=== PATIENT | female | born 1975 | race Caucasian/White ===

== ENCOUNTER 2018-07-18 18:36 | Emergency (ER) | payer OTHER ==
[~2018-07-18] VITALS: Ht 170.2 cm; Wt 74.8 kg
[2018-07-18 18:46] VITALS: BP_SYST 128
[2018-07-18 19:30] VITALS: BP_SYST 120
== END 2018-07-18 19:30 | disposition home or self-care (01) ==
LOC: SED 18:36
DX: L20.9 Atopic dermatitis, unspecified (principal); B96.89 Other specified bacterial agents as the cause of diseases classified elsewhere; E78.5 Hyperlipidemia, unspecified
CPT/HCPCS: 99283

== ENCOUNTER 2018-07-23 15:57 | Emergency (ER) | payer OTHER ==
[~2018-07-23] VITALS: Ht 170.2 cm; Wt 74.8 kg
[2018-07-23 16:00] VITALS: BP_SYST 139
[2018-07-23] MEDS ORDERED: HYDR-3698 PO (16:16)
[2018-07-23] MEDS ORDERED: DEXAMETHASONE SOD PHOSPHATE 10 MG/ML VIAL IM ONE (19:15)
[2018-07-23] MEDS ORDERED: DIPHENHYDRAMINE INJ 50 MG/ML VIAL IM ONE (19:15)
[2018-07-23 20:17] VITALS: BP_SYST 132
== END 2018-07-23 20:17 | disposition home or self-care (01) ==
LOC: SED 15:57
DX: L50.9 Urticaria, unspecified (principal); R21 Rash and other nonspecific skin eruption; R03.0 Elevated blood-pressure reading, without diagnosis of hypertension; E78.5 Hyperlipidemia, unspecified
CPT/HCPCS: 96372; 99284; J1100; J1200; 99283

== ENCOUNTER 2021-08-08 18:37 | Emergency (ER) | payer BC ==
[~2021-08-08] VITALS: Ht 160 cm; Wt 72.6 kg
[~2021-08-08 18:37] MED LIST: HYDR-3698 PO
[2021-08-08 18:47] VITALS: BP_SYST 149
[2021-08-08] MEDS ORDERED: FAMOTIDINE 20 MG TABLET PO ONE (19:00)
[2021-08-08] MEDS ORDERED: EPINEPHrine 1 MG/ML AMP IM ONE (19:00)
[2021-08-08] MEDS ORDERED: EPINEPHrine 1 MG/ML AMP ONE (19:02)
[2021-08-08 19:04] LABS: BASOPHILS # (AUTO) 0.2 K/uL (0.0-0.2); BASOPHILS % (AUTO) 2.2 % (0.0-2.0); EOSINOPHILS # (AUTO) 0.7 K/uL (0.0-0.4); EOSINOPHILS % (AUTO) 9.3 % (0.0-4.0); HEMATOCRIT 36.8 % (36-48); HEMOGLOBIN 12.6 g/dL (12.0-16.0); LYMPHOCYTES # (AUTO) 1.3 K/uL (1.0-5.5); MEAN CORPUSCULAR HEMOGLOBIN 31 pg (27-31); MEAN CORPUSCULAR HGB CONC 34 % (32-36); MEAN CORPUSCULAR VOLUME 91 fL (79.0-98.0); MONOCYTES # (AUTO) 0.5 K/uL (0.0-1.0); MONOCYTES % (AUTO) 6.6 % (1.7-9.3); NEUTROPHILS # (AUTO) 5.1 K/uL (1.8-7.7); NEUTROPHILS % (AUTO) 64.9 % (40.0-70.0); PLATELET COUNT (AUTO) 265 K/uL (130-430); RED BLOOD CELL COUNT(AUTO) 4.04 MIL/uL (4.2-6.2); RED CELL DISTRIBUTION WIDTH 13.1 % (9.0-15.0); WHITE BLOOD COUNT (AUTO) 7.9 K/uL (4.8-10.8)
[2021-08-08 19:20] LABS: ANION GAP 11 (5-15); CALCIUM 8.9 mg/dL (8.4-11.0); CHLORIDE 102 mmol/L (98-107); CREATININE 0.79 mg/dL (0.55-1.30); GLUCOSE 135 mg/dL (70-99); POTASSIUM 3.8 mmol/L (3.5-5.1); SODIUM SERUM 140 mmol/L (136-145); UREA NITROGEN, BLOOD 12 mg/dL (8-21)
[2021-08-08 19:25] LABS: ALANINE AMINOTRANSFERASE 28 U/L (12-78); ALBUMIN 3.9 g/dL (3.4-4.8); ASPARTATE AMINOTRANSFERASE 13 U/L (10-37)
[2021-08-08 19:28] LABS: GFR AFRICAN AMERICAN 100 mL/min (>90)
[2021-08-08 19:42] LABS: TOTAL BILIRUBIN 0.1 mg/dL (0.0-1.0)
[2021-08-08 19:51] LABS: C-REACTIVE PROTEIN QUANT < 0.2 mg/dL (0-0.5)
[2021-08-08 19:52] LABS: INR 0.9 (0.8-1.2); PROTHROMBIN TIME 9.9 SECS (9.5-12.5)
[2021-08-08] MEDS ORDERED: EPIN0.3P3 IM (20:14)
[2021-08-08 20:22] VITALS: BP_SYST 131
[2021-08-08 21:07] LABS: ERYTHROCYTE SEDIMENTATION RATE 9 MM/HR (0-20)
== END 2021-08-08 20:23 | disposition home or self-care (01) ==
LOC: SED 18:37
DX: L23.9 Allergic contact dermatitis, unspecified cause (principal); Z79.899 Other long term (current) drug therapy
CPT/HCPCS: 36415; 80053; 81025; 85025; 85610; 85651; 85730; 86140; 96372; 99283; J0171

== ENCOUNTER 2023-10-19 13:27 | Emergency (ER) | payer BC ==
[~2023-10-19] VITALS: Ht 167.6 cm; Wt 73.0 kg
[~2023-10-19 13:27] MED LIST changes: +EPIN0.3P3 IM
[2023-10-19 13:33] VITALS: BP_SYST 121; PULSE 62; RESP 18; TEMP 98.3; O2SAT 98
[2023-10-19] MEDS ORDERED: MORPHINE 2 MG/ML INJ. SYRINGE IVP ONE (15:00)
[2023-10-19 15:06] LABS: BASOPHILS % (AUTO) 0.9 % (0.0-2.0); EOSINOPHILS # (AUTO) 0.1 K/uL (0.0-0.4); EOSINOPHILS % (AUTO) 2.8 % (0.0-4.0); HEMATOCRIT 38.3 % (36-48); HEMOGLOBIN 12.5 g/dL (12.0-16.0); LYMPHOCYTES % (AUTO) 21.2 % (20.5-51.5); MEAN CORPUSCULAR HEMOGLOBIN 29 pg (27-31); MEAN CORPUSCULAR HGB CONC 33 % (32-36); MEAN CORPUSCULAR VOLUME 89 fL (79.0-98.0); MONOCYTES # (AUTO) 0.4 K/uL (0.0-1.0); NEUTROPHILS # (AUTO) 3.1 K/uL (1.8-7.7); NEUTROPHILS % (AUTO) 66.1 % (40.0-70.0); PLATELET COUNT (AUTO) 332 K/uL (130-430); RED BLOOD CELL COUNT(AUTO) 4.31 MIL/uL (4.2-6.2); RED CELL DISTRIBUTION WIDTH 14.6 % (9.0-15.0); WHITE BLOOD COUNT (AUTO) 4.6 K/uL (4.8-10.8)
[2023-10-19 15:16] LABS: CALCIUM 9.4 mg/dL (8.4-11.0); CREATININE 0.59 mg/dL (0.55-1.30); POTASSIUM 4.2 mmol/L (3.5-5.1)
[2023-10-19] MEDS ORDERED: ANURH RC ×2 (17:42→17:58)
[2023-10-19] MEDS ORDERED: LACT10SO6 PO ×2 (17:42→17:58)
[2023-10-19 18:00] VITALS: BP_SYST 121; PULSE 62; RESP 18; TEMP 98.3; O2SAT 98
== END 2023-10-19 17:45 | disposition home or self-care (01) ==
LOC: SED 13:27
DX: K59.00 Constipation, unspecified (principal); K64.9 Unspecified hemorrhoids; Z79.899 Other long term (current) drug therapy
CPT/HCPCS: 99285; 74177; 96374; 80048; 85025; 36415; 76376; J2270

== ENCOUNTER 2023-10-30 07:08 | Inpatient (IN) | payer BC ==
[~2023-10-30] VITALS: Ht 170.2 cm; Wt 72.6 kg
[~2023-10-30 07:08] MED LIST changes: +ANURH RC; +LACT10SO6 PO
[2023-10-30 07:48] LABS: BASOPHILS % (AUTO) 0.3 % (0.0-2.0); EOSINOPHILS % (AUTO) 0.1 % (0.0-4.0); HEMATOCRIT 42.2 % (36-48); HEMOGLOBIN 13.5 g/dL (12.0-16.0); LYMPHOCYTES # (AUTO) 0.4 K/uL (1.0-5.5); LYMPHOCYTES % (AUTO) 3.7 % (20.5-51.5); MEAN CORPUSCULAR HEMOGLOBIN 29 pg (27-31); MEAN CORPUSCULAR HGB CONC 32 % (32-36); MEAN CORPUSCULAR VOLUME 89 fL (79.0-98.0); MONOCYTES # (AUTO) 0.7 K/uL (0.0-1.0); MONOCYTES % (AUTO) 6.3 % (1.7-9.3); NEUTROPHILS # (AUTO) 10.1 K/uL (1.8-7.7); NEUTROPHILS % (AUTO) 89.6 % (40.0-70.0); PLATELET COUNT (AUTO) 384 K/uL (130-430); RED BLOOD CELL COUNT(AUTO) 4.74 MIL/uL (4.2-6.2); RED CELL DISTRIBUTION WIDTH 14.2 % (9.0-15.0); WHITE BLOOD COUNT (AUTO) 11.2 K/uL (4.8-10.8)
[2023-10-30 08:07] LABS: CREATININE 0.75 mg/dL (0.55-1.30); POTASSIUM 3.1 mmol/L (3.5-5.1)
[2023-10-30 08:10] VITALS: BP_SYST 140; PULSE 71; RESP 22; TEMP 96.5; O2SAT 97
[2023-10-30 08:12] LABS: ALBUMIN 4.1 g/dL (3.4-4.8); BILIRUBIN,DIRECT 0.1 mg/dL (0.0-0.3); TOTAL BILIRUBIN 0.4 mg/dL (0.0-1.0); TOTAL PROTEIN, SERUM 7.5 g/dL (6.4-8.3)
[2023-10-30 09:40] LABS: BILIRUBIN,URINE 2+ (NEGATIVE); BLOOD, URINE NEGATIVE (NEGATIVE); CLARITY/URINE SL CLOUDY (CLEAR); COLOR,URINE YELLOW (YELLOW); GLUCOSE,URINE NEGATIVE (NEGATIVE); KETONES,URINE TRACE (NEGATIVE); LEUKOCYTE ESTERASE ,URINE NEGATIVE (NEGATIVE); NITRITE, URINE POSITIVE (NEGATIVE); PH,URINE 5.5 (5.0-8.0); PROTEIN URINE 1+ (NEGATIVE)
[2023-10-30] MEDS ORDERED: MORPHINE 2 MG/ML INJ. SYRINGE IVP PRN ×2 (10:00→10:45)
[2023-10-30 10:20] LABS: BACTERIA,URINE RARE /HPF (None Seen); CALCIUM OXALATE CRYSTALS,UR 0-10 /HPF (None Seen); RBC,URINE 0-3 /HPF (0-3); WBC,URINE 0-3 /HPF (0-3)
[2023-10-30] MEDS: D5NS 1,000 ML IV SCH ×2 (10:26→22:47)
[2023-10-30] MEDS ORDERED: MUPIROCIN 2% TOPICAL OINTMENT 22 GM NS PRN (10:45)
[2023-10-30] MEDS ORDERED: LORazepam 2 MG/ML VIAL IVP PRN (10:45)
[2023-10-30] MEDS ORDERED: ZOLPIDEM TARTRATE 5 MG TABLET PO PRN (10:45)
[2023-10-30] MEDS ORDERED: MAGNESIUM SULFATE 50 ML IV PRN (10:45)
[2023-10-30] MEDS ORDERED: POTASSIUM CHLORIDE 40 MEQ in 0.45% NS 250 ML IV ONE (10:45)
[2023-10-30] MEDS ORDERED: ACETAMINOPHEN 500 MG TABLET PO PRN ×2 (10:45→11:15)
[2023-10-30] MEDS ORDERED: DOCUSATE SODIUM 100 MG CAPSULE PO PRN (10:45)
[2023-10-30] MEDS ORDERED: ONDANSETRON HCL 4 MG/2 ML VIAL IVP PRN (10:45)
[2023-10-30] MEDS: POTASSIUM CHLORIDE 20 mEq in 100 mL (PREMIX) 100 ML x 2 doses IV SCH ×2 (11:39→14:23)
[2023-10-30] MEDS ORDERED: PIPERACILLIN/TAZO 3.375 GM in NS 50 ML IV ONE (12:00)
[2023-10-30] MEDS: MORPHINE 2 MG/ML INJ. SYRINGE IVP PRN ×2 (12:57→21:04)
[2023-10-30 18:45] VITALS: BP_SYST 162; PULSE 64; RESP 19; TEMP 98.6; O2SAT 97
[2023-10-30 20:00] VITALS: BP_SYST 154; PULSE 69; RESP 20; TEMP 99; O2SAT 99
[2023-10-30] MEDS: SIMETHICONE 80 MG TAB.CHEW PO PRN (20:57)
[2023-10-30] MEDS: PIPERACILLIN/TAZO 3.375 GM in NS 50 ML IV SCH (21:08)
[2023-10-31] VITALS (7 sets, daily range): BP systolic 142–154; PULSE 61–99; RESP 18–21; TEMP 97.2–99; O2SAT 98–99
[2023-10-31] MEDS: PIPERACILLIN/TAZO 3.375 GM in NS 50 ML IV SCH ×4 (01:28→21:53)
[2023-10-31] MEDS: SIMETHICONE 80 MG TAB.CHEW PO PRN (03:16)
[2023-10-31 05:27] LABS: BASOPHILS % (AUTO) 0.7 % (0.0-2.0); EOSINOPHILS # (AUTO) 0.1 K/uL (0.0-0.4); EOSINOPHILS % (AUTO) 3.4 % (0.0-4.0); HEMATOCRIT 37.4 % (36-48); HEMOGLOBIN 12.2 g/dL (12.0-16.0); LYMPHOCYTES # (AUTO) 0.8 K/uL (1.0-5.5); LYMPHOCYTES % (AUTO) 17.7 % (20.5-51.5); MEAN CORPUSCULAR HEMOGLOBIN 29 pg (27-31); MEAN CORPUSCULAR HGB CONC 33 % (32-36); MEAN CORPUSCULAR VOLUME 89 fL (79.0-98.0); MONOCYTES # (AUTO) 0.5 K/uL (0.0-1.0); MONOCYTES % (AUTO) 11.1 % (1.7-9.3); NEUTROPHILS # (AUTO) 2.9 K/uL (1.8-7.7); NEUTROPHILS % (AUTO) 67.1 % (40.0-70.0); PLATELET COUNT (AUTO) 304 K/uL (130-430); RED BLOOD CELL COUNT(AUTO) 4.21 MIL/uL (4.2-6.2); RED CELL DISTRIBUTION WIDTH 14.1 % (9.0-15.0); WHITE BLOOD COUNT (AUTO) 4.3 K/uL (4.8-10.8)
[2023-10-31 05:49] LABS: CALCIUM 8.8 mg/dL (8.4-11.0); CREATININE 0.59 mg/dL (0.55-1.30); POTASSIUM 3.1 mmol/L (3.5-5.1)
[2023-10-31] MEDS ORDERED: GADOBENATE DIMEGLUMINE 529 MG/ML, 5 ML VIAL IV ONE (08:52)
[2023-10-31] MEDS: MORPHINE 2 MG/ML INJ. SYRINGE IVP PRN ×2 (10:38→16:47)
[2023-10-31] MEDS: D5NS 1,000 ML IV SCH (11:00)
[2023-10-31] MEDS ORDERED: MEPERIDINE 100 MG INJ. 100 MG/ML VIAL ONE (11:09)
[2023-10-31] MEDS ORDERED: MIDAZOLAM HCL 5 MG/5 ML VIAL ONE (11:09)
[2023-10-31] MEDS ORDERED: KETOROLAC TROMETHAMINE 30 MG VIAL IVP PRN (12:30)
[2023-10-31] MEDS: HYDROCORTISONE ACETATE 1 SUPP (ANUSOL HC) RC SCH (21:00)
[2023-10-31] MEDS: MORPHINE 4 MG INJ. 4 MG/ML VIAL IVP PRN (21:54)
[2023-11-01] VITALS: BP_SYST 148; PULSE 55; RESP 18; TEMP 97.4; O2SAT 95
[2023-11-01] MEDS: D5NS 1,000 ML IV SCH ×2 (00:46→15:12)
[2023-11-01] MEDS: PIPERACILLIN/TAZO 3.375 GM in NS 50 ML IV SCH (02:51)
[2023-11-01] MEDS: MORPHINE 4 MG INJ. 4 MG/ML VIAL IVP PRN ×4 (03:55→21:53)
[2023-11-01 08:00] VITALS: BP_SYST 137; PULSE 54; RESP 18; TEMP 97.9; O2SAT 97
[2023-11-01 08:03] LABS: BASOPHILS % (AUTO) 0.7 % (0.0-2.0); EOSINOPHILS # (AUTO) 0.1 K/uL (0.0-0.4); EOSINOPHILS % (AUTO) 2.9 % (0.0-4.0); HEMATOCRIT 37.8 % (36-48); HEMOGLOBIN 12.3 g/dL (12.0-16.0); LYMPHOCYTES # (AUTO) 0.7 K/uL (1.0-5.5); LYMPHOCYTES % (AUTO) 16.1 % (20.5-51.5); MEAN CORPUSCULAR HEMOGLOBIN 29 pg (27-31); MEAN CORPUSCULAR HGB CONC 32 % (32-36); MEAN CORPUSCULAR VOLUME 89 fL (79.0-98.0); MONOCYTES # (AUTO) 0.5 K/uL (0.0-1.0); MONOCYTES % (AUTO) 10.6 % (1.7-9.3); NEUTROPHILS # (AUTO) 3.1 K/uL (1.8-7.7); NEUTROPHILS % (AUTO) 69.7 % (40.0-70.0); PLATELET COUNT (AUTO) 291 K/uL (130-430); RED BLOOD CELL COUNT(AUTO) 4.24 MIL/uL (4.2-6.2); RED CELL DISTRIBUTION WIDTH 14.2 % (9.0-15.0); WHITE BLOOD COUNT (AUTO) 4.4 K/uL (4.8-10.8)
[2023-11-01 08:18] LABS: CALCIUM 8.1 mg/dL (8.4-11.0); CREATININE 0.58 mg/dL (0.55-1.30)
[2023-11-01 08:26] LABS: POTASSIUM 2.6 mmol/L (3.5-5.1)
[2023-11-01] MEDS: POTASSIUM CHLORIDE 20 MEQ TABLET.ER PO PRN (09:32)
[2023-11-01] MEDS: SIMETHICONE 80 MG TAB.CHEW PO PRN (09:32)
[2023-11-01] MEDS: HYDROCORTISONE ACETATE 1 SUPP (ANUSOL HC) RC SCH ×2 (12:21→21:00)
[2023-11-01] MEDS: metroNIDAZOLE 250 mg/NS 50 ML IV SCH ×2 (15:13→21:56)
[2023-11-01 20:45] VITALS: BP_SYST 139; PULSE 62; RESP 18; TEMP 98.4; O2SAT 97
[2023-11-02] VITALS: BP_SYST 147; PULSE 60; RESP 18; TEMP 98.6; O2SAT 97
[2023-11-02] MEDS: D5NS 1,000 ML IV SCH ×2 (00:30→13:00)
[2023-11-02] MEDS: HYDROCORTISONE ACETATE 1 SUPP (ANUSOL HC) RC SCH ×2 (00:52→09:15)
[2023-11-02] MEDS: MORPHINE 4 MG INJ. 4 MG/ML VIAL IVP PRN (03:29)
[2023-11-02 06:05] LABS: BASOPHILS % (AUTO) 0.6 % (0.0-2.0); EOSINOPHILS # (AUTO) 0.1 K/uL (0.0-0.4); EOSINOPHILS % (AUTO) 2.7 % (0.0-4.0); HEMATOCRIT 37.6 % (36-48); HEMOGLOBIN 12.1 g/dL (12.0-16.0); LYMPHOCYTES # (AUTO) 0.8 K/uL (1.0-5.5); LYMPHOCYTES % (AUTO) 18.1 % (20.5-51.5); MEAN CORPUSCULAR HEMOGLOBIN 29 pg (27-31); MEAN CORPUSCULAR HGB CONC 32 % (32-36); MEAN CORPUSCULAR VOLUME 90 fL (79.0-98.0); MONOCYTES # (AUTO) 0.4 K/uL (0.0-1.0); MONOCYTES % (AUTO) 10.3 % (1.7-9.3); NEUTROPHILS # (AUTO) 2.9 K/uL (1.8-7.7); NEUTROPHILS % (AUTO) 68.3 % (40.0-70.0); PLATELET COUNT (AUTO) 278 K/uL (130-430); RED CELL DISTRIBUTION WIDTH 13.9 % (9.0-15.0); WHITE BLOOD COUNT (AUTO) 4.2 K/uL (4.8-10.8)
[2023-11-02] MEDS: metroNIDAZOLE 250 mg/NS 50 ML IV SCH ×2 (06:11→14:00)
[2023-11-02 06:25] LABS: CALCIUM 8.4 mg/dL (8.4-11.0); CREATININE 0.51 mg/dL (0.55-1.30); POTASSIUM 3.1 mmol/L (3.5-5.1)
[2023-11-02 08:00] VITALS: O2SAT 99
[2023-11-02 08:07] VITALS: BP_SYST 142; PULSE 55; RESP 18; TEMP 98.6; O2SAT 99
[2023-11-02] MEDS ORDERED: HYDR-3917 PO (08:55)
[2023-11-02] MEDS ORDERED: METR-154 PO (08:55)
[2023-11-02] MEDS ORDERED: SIME125T49 PO (08:56)
[2023-11-02] MEDS ORDERED: HYDROcodone/ACETAMIN 5-325 MG TAB (NORCO/ VICODIN) PO PRN (09:00)
[2023-11-02] MEDS: POTASSIUM CHLORIDE 20 MEQ TABLET.ER PO PRN (09:35)
[2023-11-02 12:00] VITALS: BP_SYST 143; PULSE 56; RESP 18; TEMP 97.3; O2SAT 98
[2023-11-02 13:40] VITALS: BP_SYST 145; PULSE 59; RESP 18; TEMP 97.5; O2SAT 98
[2023-11-02] MEDS ORDERED: ACYCLOVIR 400 MG TABLET PO SCH (14:00)
== END 2023-11-02 14:20 | disposition home or self-care (01) | DRG 392 ==
LOC: SED 07:08 → SMU 09:50
PROVIDERS: ADMIT General Practice; ATTEND General Practice
PROC: 0DBP8ZX Excision of Rectum, Via Natural or Artificial Opening Endoscopic, Diagnostic (ICD-10-PCS; principal; 2023-10-31 14:00)
DX: K57.90 Diverticulosis of intestine, part unspecified, without perforation or abscess without bleeding (principal); K56.7 Ileus, unspecified; E78.5 Hyperlipidemia, unspecified; K62.89 Other specified diseases of anus and rectum; M43.06 Spondylolysis, lumbar region; N73.9 Female pelvic inflammatory disease, unspecified; E27.9 Disorder of adrenal gland, unspecified; Z80.1 Family history of malignant neoplasm of trachea, bronchus and lung
CPT/HCPCS: 36415; 72197; 74018; 76376; 80048; 80076; 81000; 81001; 81015; 83037; 83735; 85025; 85651-TC; 86592; 87040; 88305; 96365; 96375; 99285; A9577; J1885; J2175; J2250; J2270; J2405; J2543; J3480; J3490; Q9967

== ENCOUNTER 2023-11-03 11:26 | Inpatient (IN) | payer BC ==
[~2023-11-03] VITALS: Ht 170.2 cm; Wt 72.1 kg
[~2023-11-03 11:26] MED LIST changes: -ANURH RC; -EPIN0.3P3 IM; -HYDR-3698 PO; +HYDR-3917 PO; -LACT10SO6 PO; +METR-154 PO; +SIME125T49 PO
[2023-11-03 11:35] VITALS: BP_SYST 150; PULSE 77; RESP 24; TEMP 97.8; O2SAT 99
[2023-11-03] MEDS ORDERED: MORPHINE 4 MG INJ. 4 MG/ML VIAL IVP ONE (13:00)
[2023-11-03] MEDS ORDERED: ONDANSETRON HCL 4 MG/2 ML VIAL IVP ONE (13:00)
[2023-11-03] MEDS ORDERED: KETOROLAC TROMETHAMINE 15 MG VIAL IVP ONE (13:15)
[2023-11-03 13:22] LABS: BILIRUBIN,URINE NEGATIVE (NEGATIVE); BLOOD, URINE NEGATIVE (NEGATIVE); CLARITY/URINE CLEAR (CLEAR); COLOR,URINE YELLOW (YELLOW); GLUCOSE,URINE NEGATIVE (NEGATIVE); KETONES,URINE 1+ (NEGATIVE); LEUKOCYTE ESTERASE ,URINE TRACE (NEGATIVE); NITRITE, URINE NEGATIVE (NEGATIVE); PH,URINE 6.5 (5.0-8.0); PROTEIN URINE NEGATIVE (NEGATIVE); UROBILINOGEN,URINE 0.2 (0.2-1.0)
[2023-11-03 13:33] LABS: BASOPHILS % (AUTO) 0.6 % (0.0-2.0); EOSINOPHILS # (AUTO) 0.1 K/uL (0.0-0.4); EOSINOPHILS % (AUTO) 1.3 % (0.0-4.0); HEMATOCRIT 41.3 % (36-48); HEMOGLOBIN 13.5 g/dL (12.0-16.0); LYMPHOCYTES # (AUTO) 0.7 K/uL (1.0-5.5); LYMPHOCYTES % (AUTO) 10.4 % (20.5-51.5); MEAN CORPUSCULAR HEMOGLOBIN 29 pg (27-31); MEAN CORPUSCULAR HGB CONC 33 % (32-36); MEAN CORPUSCULAR VOLUME 90 fL (79.0-98.0); MONOCYTES # (AUTO) 0.4 K/uL (0.0-1.0); MONOCYTES % (AUTO) 6.5 % (1.7-9.3); NEUTROPHILS # (AUTO) 5.3 K/uL (1.8-7.7); NEUTROPHILS % (AUTO) 81.2 % (40.0-70.0); PLATELET COUNT (AUTO) 336 K/uL (130-430); RED CELL DISTRIBUTION WIDTH 14.3 % (9.0-15.0); WHITE BLOOD COUNT (AUTO) 6.5 K/uL (4.8-10.8)
[2023-11-03 13:52] LABS: ALBUMIN 4.2 g/dL (3.4-4.8); BILIRUBIN,DIRECT 0.2 mg/dL (0.0-0.3); CALCIUM 9.8 mg/dL (8.4-11.0); CREATININE 0.69 mg/dL (0.55-1.30); TOTAL BILIRUBIN 0.6 mg/dL (0.0-1.0); TOTAL PROTEIN, SERUM 7.7 g/dL (6.4-8.3)
[2023-11-03] MEDS ORDERED: D5/0.45 NS 1,000 ML IV ONE (14:15)
[2023-11-03] MEDS ORDERED: HYDROCORTISONE ACETATE 1 SUPP (ANUSOL HC) RC ONE (16:45)
[2023-11-03 17:47] VITALS: BP_SYST 141; PULSE 65; RESP 16; TEMP 98.3; O2SAT 99
[2023-11-03 20:33] VITALS: BP_SYST 145; PULSE 78; RESP 20; TEMP 98.7
[2023-11-03] MEDS ORDERED: SIMETHICONE 80 MG TAB.CHEW PO SCH (21:15)
[2023-11-03] MEDS: KETOROLAC TROMETHAMINE 30 MG VIAL IVP PRN (21:34)
[2023-11-04] MEDS: SIMETHICONE 80 MG TAB.CHEW PO SCH ×2 (00:30→08:59)
[2023-11-04] MEDS: KETOROLAC TROMETHAMINE 30 MG VIAL IVP PRN ×5 (02:11→19:44)
[2023-11-04 03:59] LABS: HCG,QUAL RESULT NEGATIVE (NEGATIVE)
[2023-11-04 08:00] VITALS: O2SAT 98
[2023-11-04 08:34] VITALS: BP_SYST 138; PULSE 62; RESP 16; TEMP 99.1; O2SAT 98
[2023-11-04] MEDS ORDERED: LORazepam 2 MG/ML VIAL IVP PRN (09:15)
[2023-11-04] MEDS ORDERED: NALOXONE HCL 0.4 MG/ML AMP (NARCAN) IVP PRN ×2 (09:15)
[2023-11-04] MEDS ORDERED: HYDROcodone/ACETAMIN 5-325 MG TAB (NORCO/ VICODIN) PO PRN (09:15)
[2023-11-04 09:44] LABS: BASOPHILS % (AUTO) 0.6 % (0.0-2.0); EOSINOPHILS # (AUTO) 0.2 K/uL (0.0-0.4); EOSINOPHILS % (AUTO) 3.3 % (0.0-4.0); HEMATOCRIT 38.2 % (36-48); HEMOGLOBIN 12.8 g/dL (12.0-16.0); LYMPHOCYTES # (AUTO) 0.8 K/uL (1.0-5.5); LYMPHOCYTES % (AUTO) 16.6 % (20.5-51.5); MEAN CORPUSCULAR HEMOGLOBIN 30 pg (27-31); MEAN CORPUSCULAR HGB CONC 34 % (32-36); MEAN CORPUSCULAR VOLUME 90 fL (79.0-98.0); MONOCYTES # (AUTO) 0.5 K/uL (0.0-1.0); MONOCYTES % (AUTO) 10.2 % (1.7-9.3); NEUTROPHILS # (AUTO) 3.4 K/uL (1.8-7.7); NEUTROPHILS % (AUTO) 69.3 % (40.0-70.0); PLATELET COUNT (AUTO) 319 K/uL (130-430); RED BLOOD CELL COUNT(AUTO) 4.27 MIL/uL (4.2-6.2); WHITE BLOOD COUNT (AUTO) 4.8 K/uL (4.8-10.8)
[2023-11-04 09:55] LABS: CALCIUM 8.6 mg/dL (8.4-11.0); CREATININE 0.54 mg/dL (0.55-1.30); POTASSIUM 3.1 mmol/L (3.5-5.1)
[2023-11-04] MEDS: ONDANSETRON HCL 4 MG/2 ML VIAL IVP PRN (10:06)
[2023-11-04 11:29] VITALS: BP_SYST 140; PULSE 62; RESP 16; TEMP 98.2; O2SAT 96
[2023-11-04] MEDS: POTASSIUM CHLORIDE 20 MEQ TABLET.ER PO ONE ×2 (11:45→14:16)
[2023-11-04] MEDS ORDERED: PHENYLEPH/MINERAL OIL/PETROLAT 57 GM OINT.APPL TP PRN (13:30)
[2023-11-04] MEDS: metroNIDAZOLE 500 MG TABLET PO SCH ×2 (15:00→21:00)
[2023-11-04] MEDS ORDERED: POTASSIUM CHLORIDE 40 MEQ, LIDOCAINE JECT 2% PF 100 MG 75 MG in NS 250 ML IV ONE (16:00)
[2023-11-04] MEDS ORDERED: DIATR MEGLU/DIATRIZ SOD 30 ML SOLUTION PO ONE (16:10)
[2023-11-04 20:00] VITALS: BP_SYST 146; PULSE 87; RESP 18; TEMP 98.3; O2SAT 98
[2023-11-04] MEDS ORDERED: SIMETHICONE 125 MG PO SCH (21:00)
[2023-11-04 23:25] VITALS: O2SAT 98
[2023-11-05] MEDS: KETOROLAC TROMETHAMINE 30 MG VIAL IVP PRN ×3 (00:05→08:29)
[2023-11-05 00:06] VITALS: BP_SYST 145; PULSE 66; RESP 16; TEMP 96.5; O2SAT 97
[2023-11-05] MEDS: D5/0.45 NS 1,000 ML IV SCH ×2 (01:22→05:00)
[2023-11-05] MEDS ORDERED: SIMETHICONE 80 MG TAB.CHEW PO ONE (02:45)
[2023-11-05] MEDS: ACETAMINOPHEN 325 MG TABLET PO PRN (02:54)
[2023-11-05 07:08] LABS: CALCIUM 8.9 mg/dL (8.4-11.0); POTASSIUM 3.3 mmol/L (3.5-5.1)
[2023-11-05 07:09] LABS: CREATININE 0.61 mg/dL (0.55-1.30)
[2023-11-05 07:11] LABS: BASOPHILS % (AUTO) 0.5 % (0.0-2.0); EOSINOPHILS # (AUTO) 0.1 K/uL (0.0-0.4); EOSINOPHILS % (AUTO) 3.4 % (0.0-4.0); HEMATOCRIT 37.9 % (36-48); HEMOGLOBIN 12.8 g/dL (12.0-16.0); LYMPHOCYTES # (AUTO) 0.6 K/uL (1.0-5.5); LYMPHOCYTES % (AUTO) 14.6 % (20.5-51.5); MEAN CORPUSCULAR HEMOGLOBIN 30 pg (27-31); MEAN CORPUSCULAR HGB CONC 34 % (32-36); MEAN CORPUSCULAR VOLUME 89 fL (79.0-98.0); MONOCYTES # (AUTO) 0.5 K/uL (0.0-1.0); MONOCYTES % (AUTO) 11.8 % (1.7-9.3); NEUTROPHILS # (AUTO) 3.1 K/uL (1.8-7.7); NEUTROPHILS % (AUTO) 69.7 % (40.0-70.0); PLATELET COUNT (AUTO) 317 K/uL (130-430); RED BLOOD CELL COUNT(AUTO) 4.24 MIL/uL (4.2-6.2); WHITE BLOOD COUNT (AUTO) 4.4 K/uL (4.8-10.8)
[2023-11-05 08:00] VITALS: O2SAT 97
[2023-11-05] MEDS: metroNIDAZOLE 500 MG TABLET PO SCH ×2 (08:25→21:00)
[2023-11-05] MEDS: SIMETHICONE 80 MG TAB.CHEW PO SCH ×3 (08:26→21:00)
[2023-11-05] MEDS ORDERED: MINERAL OIL 30 ML UDC PO ONE (09:45)
[2023-11-05] MEDS ORDERED: GOLYTELY / COLYTE SOLUTION 4 LITERS PO ONE (09:45)
[2023-11-05 11:30] VITALS: BP_SYST 127; PULSE 68; RESP 17; TEMP 98; O2SAT 98
[2023-11-05] MEDS ORDERED: LR 1,000 ML IV ONE (16:30)
[2023-11-05 17:30] VITALS: BP_SYST 158; PULSE 80; RESP 18; TEMP 98.2; O2SAT 97
[2023-11-05] MEDS ORDERED: GLYCOPYRROLATE 0.2 MG/ML VIAL ONE (17:30)
[2023-11-05] MEDS ORDERED: fentaNYL CITRATE/PF 100 MCG/2 ML AMP ONE (17:30)
[2023-11-05] MEDS ORDERED: PROPOFOL 200MG/ 20ML VIAL (DIPRIVAN) IV ONE (17:30)
[2023-11-05] MEDS ORDERED: ONDANSETRON HCL 4 MG/2 ML VIAL ONE (17:30)
[2023-11-05] MEDS ORDERED: NS IRRIG SOLN 1000 ML IR ONE (17:30)
[2023-11-05] MEDS ORDERED: METOCLOPRAMIDE HCL 10 MG/2 ML VIAL ONE (17:30)
[2023-11-05] MEDS ORDERED: BUPIVACAINE /PF 0.25% 30 ML VIAL INJ ONE (17:30)
[2023-11-05] MEDS ORDERED: NS 1000 ML IV.SOLN IV ONE (17:30)
[2023-11-05] MEDS ORDERED: SEVOFLURANE 15 MIN GAS INH ONE (17:30)
[2023-11-05] MEDS ORDERED: SUCCINYLCHOLINE CHLORIDE 20 MG/ML(QUELICIN) ONE (17:30)
[2023-11-05] MEDS ORDERED: NEOSTIGMINE METHYLSULFATE 1 MG/ML, 10 ML VIAL ONE (17:30)
[2023-11-05] MEDS ORDERED: LR 1,000 ML IV.SOLN IV ONE (17:30)
[2023-11-05] MEDS ORDERED: ROCURONIUM BROMIDE 10 MG/ML (ZEMURON) ONE (17:30)
[2023-11-05] MEDS ORDERED: MIDAZOLAM HCL/PF 2 MG/2 ML SYRINGE ONE (17:30)
[2023-11-05] MEDS ORDERED: SIMETHICONE 40 MG/0.6 ML ML ONE (18:29)
[2023-11-05] MEDS ORDERED: KETOROLAC TROMETHAMINE 30 MG VIAL IVP PRN (18:30)
[2023-11-05] MEDS ORDERED: NACL 0.9% 1,000 ML IV SCH (18:30)
[2023-11-05] MEDS ORDERED: HYDROmorphone 2 MG/ML VIAL IVP PRN (18:30)
[2023-11-05] MEDS ORDERED: HYDROmorphone 1 MG/ML INJ. CARTRIDGE IVP PRN (18:30)
[2023-11-05] MEDS ORDERED: ONDANSETRON HCL 4 MG/2 ML VIAL IVP PRN (18:30)
[2023-11-05] MEDS ORDERED: BUPIVACAINE LIPOSOME/PF 266 MG/20 ML VIAL INFIL ONE (19:03)
[2023-11-05 20:24] LABS: PROTHROMBIN TIME 10.8 SECS (9.5-12.5)
[2023-11-05] MEDS ORDERED: HYDROmorphone 1 MG/ML INJ. CARTRIDGE ONE (20:56)
[2023-11-05] MEDS: GABAPENTIN 300 MG CAPSULE PO SCH (21:00)
[2023-11-05] MEDS: ACETAMINOPHEN 500 MG TABLET PO SCH (21:00)
[2023-11-05] MEDS: KETOROLAC TROMETHAMINE 15 MG VIAL IVP SCH (22:40)
[2023-11-05] MEDS: ONDANSETRON HCL 4 MG/2 ML VIAL IVP PRN (22:40)
[2023-11-05] MEDS: HYDROmorphone 1 MG/ML INJ. CARTRIDGE IVP PRN (22:47)
[2023-11-05] MEDS: LR 1,000 ML IV SCH (23:02)
[2023-11-06] VITALS: BP_SYST 125; PULSE 85; RESP 18; TEMP 98.8; O2SAT 97
[2023-11-06] MEDS: ONDANSETRON HCL 4 MG/2 ML VIAL IVP PRN ×3 (03:24→11:06)
[2023-11-06] MEDS: HYDROmorphone 1 MG/ML INJ. CARTRIDGE IVP PRN ×4 (03:25→22:42)
[2023-11-06] MEDS: KETOROLAC TROMETHAMINE 15 MG VIAL IVP SCH ×3 (05:29→21:40)
[2023-11-06] MEDS: MORPHINE 2 MG/ML INJ. SYRINGE IVP PRN (05:30)
[2023-11-06 05:31] VITALS: BP_SYST 125; PULSE 85; O2SAT 97
[2023-11-06] MEDS ORDERED: metroNIDAZOLE 500 mg/NS 100 ML IV ONE (05:35)
[2023-11-06 06:30] LABS: ALBUMIN 2.5 g/dL (3.4-4.8); CREATININE 0.54 mg/dL (0.55-1.30); POTASSIUM 3.5 mmol/L (3.5-5.1); TOTAL BILIRUBIN 0.6 mg/dL (0.0-1.0); TOTAL PROTEIN, SERUM 5.1 g/dL (6.4-8.3)
[2023-11-06] MEDS: ACETAMINOPHEN 500 MG TABLET PO SCH ×4 (06:32→21:00)
[2023-11-06 06:44] LABS: BASOPHILS % (AUTO) 0.1 % (0.0-2.0); EOSINOPHILS % (AUTO) 0.1 % (0.0-4.0); HEMATOCRIT 37.2 % (36-48); HEMOGLOBIN 12.5 g/dL (12.0-16.0); LYMPHOCYTES # (AUTO) 0.5 K/uL (1.0-5.5); LYMPHOCYTES % (AUTO) 9.1 % (20.5-51.5); MEAN CORPUSCULAR HEMOGLOBIN 30 pg (27-31); MEAN CORPUSCULAR HGB CONC 34 % (32-36); MEAN CORPUSCULAR VOLUME 89 fL (79.0-98.0); MONOCYTES # (AUTO) 0.4 K/uL (0.0-1.0); NEUTROPHILS # (AUTO) 4.5 K/uL (1.8-7.7); NEUTROPHILS % (AUTO) 82.7 % (40.0-70.0); PLATELET COUNT (AUTO) 301 K/uL (130-430); RED BLOOD CELL COUNT(AUTO) 4.17 MIL/uL (4.2-6.2); RED CELL DISTRIBUTION WIDTH 14.3 % (9.0-15.0); WHITE BLOOD COUNT (AUTO) 5.5 K/uL (4.8-10.8)
[2023-11-06] MEDS: LR 1,000 ML IV SCH (06:53)
[2023-11-06] MEDS: metroNIDAZOLE 500 mg/NS 100 ML IV SCH ×3 (06:54→21:40)
[2023-11-06 07:07] LABS: CEA 3.3 ng/mL (0.0-4.7)
[2023-11-06 08:00] VITALS: BP_SYST 123; PULSE 16; RESP 16; TEMP 97; O2SAT 96
[2023-11-06] MEDS: GABAPENTIN 300 MG CAPSULE PO SCH ×3 (09:00→21:00)
[2023-11-06] MEDS: SIMETHICONE 80 MG TAB.CHEW PO SCH ×4 (09:26→21:41)
[2023-11-06] MEDS ORDERED: NALOXONE HCL 0.4 MG/ML AMP (NARCAN) IVP PRN (11:30)
[2023-11-06 11:45] VITALS: BP_SYST 122; PULSE 75; RESP 18; TEMP 98.7; O2SAT 96
[2023-11-06] MEDS ORDERED: HYDROmorphone 1 MG/ML INJ. CARTRIDGE IVP ONE (11:45)
[2023-11-06] MEDS: HYDROmorphone 2 MG/ML VIAL IVP PRN (17:21)
[2023-11-06 17:23] VITALS: BP_SYST 134; PULSE 80; RESP 17; TEMP 98.8; O2SAT 97
[2023-11-06 20:00] VITALS: BP_SYST 135; PULSE 87; RESP 20; TEMP 98.9; O2SAT 95
[2023-11-07 01:37] VITALS: BP_SYST 145; PULSE 84; RESP 20; TEMP 98.2; O2SAT 97
[2023-11-07] MEDS: HYDROmorphone 2 MG/ML VIAL IVP PRN ×2 (03:14→12:34)
[2023-11-07] MEDS: LR 1,000 ML IV SCH ×2 (03:17→08:33)
[2023-11-07] MEDS: KETOROLAC TROMETHAMINE 15 MG VIAL IVP SCH ×3 (06:25→21:37)
[2023-11-07] MEDS: metroNIDAZOLE 500 mg/NS 100 ML IV SCH ×3 (06:25→21:37)
[2023-11-07] MEDS: ACETAMINOPHEN 500 MG TABLET PO SCH ×4 (06:26→21:00)
[2023-11-07 08:00] VITALS: O2SAT 97
[2023-11-07] MEDS: HYDROmorphone 1 MG/ML INJ. CARTRIDGE IVP PRN ×2 (08:20→18:08)
[2023-11-07] MEDS: ONDANSETRON HCL 4 MG/2 ML VIAL IVP PRN ×3 (08:20→18:25)
[2023-11-07] MEDS: SIMETHICONE 80 MG TAB.CHEW PO SCH ×4 (08:20→21:36)
[2023-11-07] MEDS: GABAPENTIN 300 MG CAPSULE PO SCH ×3 (08:34→21:00)
[2023-11-07] MEDS ORDERED: DEXTROSE 50% JECT 50 ML DISP.SYRIN IVP PRN (08:45)
[2023-11-07] MEDS ORDERED: *TPN PER PHARMACY XX PRN (08:45)
[2023-11-07 10:24] VITALS: BP_SYST 133; PULSE 86; RESP 18; TEMP 98.9; O2SAT 95
[2023-11-07 11:34] LABS: PHOSPHORUS 2.8 mg/dL (2.7-4.5)
[2023-11-07 12:21] LABS: ALBUMIN 2.4 g/dL (3.4-4.8); CALCIUM 8.4 mg/dL (8.4-11.0); CREATININE 0.73 mg/dL (0.55-1.30); POTASSIUM 3.4 mmol/L (3.5-5.1); TOTAL BILIRUBIN 0.6 mg/dL (0.0-1.0); TOTAL PROTEIN, SERUM 5.7 g/dL (6.4-8.3)
[2023-11-07] MEDS: KCL 20 mEq in D5/0.45NS 1000mL 1,000 ML IV SCH (12:26)
[2023-11-07] MEDS: MORPHINE 2 MG/ML INJ. SYRINGE IVP PRN (12:26)
[2023-11-07 16:12] VITALS: BP_SYST 150; PULSE 88; RESP 18; TEMP 97.5; O2SAT 96
[2023-11-07 21:00] VITALS: O2SAT 95
[2023-11-07] MEDS ORDERED: SODIUM ACETATE IV SCH ×8 (21:00)
[2023-11-07] MEDS ORDERED: [UNRECOGNIZED DRUG - OTHER] IV SCH ×8 (21:00)
[2023-11-07] MEDS ORDERED: TPN CENTRAL IV SCH ×8 (21:00)
[2023-11-07] MEDS ORDERED: POTASSIUM CHLORIDE IV SCH ×8 (21:00)
[2023-11-08] VITALS: BP_SYST 114; PULSE 79; RESP 18; TEMP 97.9; O2SAT 97
[2023-11-08] MEDS: HYDROmorphone 2 MG/ML VIAL IVP PRN ×4 (00:08→19:36)
[2023-11-08] MEDS: KCL 20 mEq in D5/0.45NS 1000mL 1,000 ML IV SCH ×2 (00:48→13:57)
[2023-11-08] MEDS: INSULIN REGULAR, HUMAN 100 UNITS/ML, 3 ML VIAL (humuLIN R) SUBCUT PRN ×2 (00:51→12:15)
[2023-11-08] MEDS: HYDROmorphone 1 MG/ML INJ. CARTRIDGE IVP PRN (04:41)
[2023-11-08] MEDS: metroNIDAZOLE 500 mg/NS 100 ML IV SCH ×3 (06:10→23:03)
[2023-11-08] MEDS: KETOROLAC TROMETHAMINE 15 MG VIAL IVP SCH ×3 (06:11→23:03)
[2023-11-08 06:36] LABS: BASOPHILS % (AUTO) 0.4 % (0.0-2.0); EOSINOPHILS # (AUTO) 0.1 K/uL (0.0-0.4); EOSINOPHILS % (AUTO) 3.7 % (0.0-4.0); HEMATOCRIT 33.9 % (36-48); HEMOGLOBIN 11.6 g/dL (12.0-16.0); LYMPHOCYTES # (AUTO) 0.6 K/uL (1.0-5.5); LYMPHOCYTES % (AUTO) 19.6 % (20.5-51.5); MEAN CORPUSCULAR HEMOGLOBIN 30 pg (27-31); MEAN CORPUSCULAR HGB CONC 34 % (32-36); MEAN CORPUSCULAR VOLUME 89 fL (79.0-98.0); MONOCYTES # (AUTO) 0.5 K/uL (0.0-1.0); MONOCYTES % (AUTO) 16.4 % (1.7-9.3); NEUTROPHILS # (AUTO) 1.7 K/uL (1.8-7.7); NEUTROPHILS % (AUTO) 59.9 % (40.0-70.0); PLATELET COUNT (AUTO) 280 K/uL (130-430); RED BLOOD CELL COUNT(AUTO) 3.83 MIL/uL (4.2-6.2); WHITE BLOOD COUNT (AUTO) 2.8 K/uL (4.8-10.8)
[2023-11-08] MEDS: ACETAMINOPHEN 500 MG TABLET PO SCH ×4 (07:00→20:44)
[2023-11-08 07:06] LABS: CALCIUM 8.2 mg/dL (8.4-11.0); CREATININE 0.6 mg/dL (0.55-1.30); PHOSPHORUS 2.4 mg/dL (2.7-4.5); POTASSIUM 3.6 mmol/L (3.5-5.1); TOTAL BILIRUBIN 0.4 mg/dL (0.0-1.0); TOTAL PROTEIN, SERUM 5.1 g/dL (6.4-8.3)
[2023-11-08 08:00] VITALS: BP_SYST 126; PULSE 79; RESP 18; TEMP 96.9; O2SAT 98
[2023-11-08] MEDS: SIMETHICONE 80 MG TAB.CHEW PO SCH ×4 (08:48→20:43)
[2023-11-08] MEDS: GABAPENTIN 300 MG CAPSULE PO SCH ×4 (08:48→20:43)
[2023-11-08] MEDS: ONDANSETRON HCL 4 MG/2 ML VIAL IVP PRN (12:19)
[2023-11-08 12:24] VITALS: BP_SYST 140; PULSE 82; RESP 17; TEMP 97.6; O2SAT 97
[2023-11-08] MEDS ORDERED: FAT EMULSIONS 250 ML IV SCH (12:45)
[2023-11-08 16:34] VITALS: BP_SYST 129; PULSE 80; RESP 18; TEMP 97.1; O2SAT 98
[2023-11-08 19:00] VITALS: BP_SYST 127; PULSE 85; RESP 18; TEMP 99; O2SAT 96
[2023-11-08 20:00] VITALS: BP_SYST 127; PULSE 85; RESP 18; TEMP 99; O2SAT 96
[2023-11-08] MEDS: FAT EMULSIONS 250 ML IV SCH (20:46)
[2023-11-08] MEDS ORDERED: K PHOS IV SCH ×9 (21:00)
[2023-11-08] MEDS ORDERED: [UNRECOGNIZED DRUG - OTHER] IV SCH ×9 (21:00)
[2023-11-08] MEDS ORDERED: SODIUM CHLORIDE IV SCH ×9 (21:00)
[2023-11-08] MEDS ORDERED: TPN CENTRAL IV SCH ×9 (21:00)
[2023-11-08] MEDS ORDERED: POTASSIUM CHLORIDE IV SCH ×9 (21:00)
[2023-11-09] VITALS (7 sets, daily range): BP systolic 109–147; PULSE 70–80; RESP 16–20; TEMP 97.9–98.4; O2SAT 98–99
[2023-11-09] MEDS: HYDROmorphone 2 MG/ML VIAL IVP PRN ×2 (00:41→05:16)
[2023-11-09] MEDS: ONDANSETRON HCL 4 MG/2 ML VIAL IVP PRN ×4 (00:58→21:15)
[2023-11-09] MEDS: metroNIDAZOLE 500 mg/NS 100 ML IV SCH ×3 (05:40→22:12)
[2023-11-09] MEDS: KCL 20 mEq in D5/0.45NS 1000mL 1,000 ML IV SCH ×2 (05:41→19:00)
[2023-11-09] MEDS: KETOROLAC TROMETHAMINE 15 MG VIAL IVP SCH ×3 (05:57→22:13)
[2023-11-09] MEDS: INSULIN REGULAR, HUMAN 100 UNITS/ML, 3 ML VIAL (humuLIN R) SUBCUT PRN ×2 (06:07→18:26)
[2023-11-09] MEDS: ACETAMINOPHEN 500 MG TABLET PO SCH ×4 (07:00→21:18)
[2023-11-09 07:16] LABS: CALCIUM 8.2 mg/dL (8.4-11.0); CREATININE 0.71 mg/dL (0.55-1.30); PHOSPHORUS 2.4 mg/dL (2.7-4.5); POTASSIUM 3.1 mmol/L (3.5-5.1); TOTAL BILIRUBIN 0.3 mg/dL (0.0-1.0); TOTAL PROTEIN, SERUM 5.2 g/dL (6.4-8.3)
[2023-11-09] MEDS: GABAPENTIN 300 MG CAPSULE PO SCH ×4 (09:00→21:16)
[2023-11-09] MEDS: SIMETHICONE 80 MG TAB.CHEW PO SCH ×4 (09:59→21:17)
[2023-11-09] MEDS: MORPHINE 2 MG/ML INJ. SYRINGE IVP PRN ×3 (10:18→18:58)
[2023-11-09] MEDS ORDERED: PANTOPRAZOLE SODIUM 40 MG/VIAL (PROTONIX) IVP ONE (13:00)
[2023-11-09] MEDS ORDERED: PANTOPRAZOLE SODIUM 40 MG TAB PO SCH (14:00)
[2023-11-09] MEDS ORDERED: POTASSIUM CHLORIDE IV SCH ×9 (21:00)
[2023-11-09] MEDS ORDERED: SODIUM CHLORIDE IV SCH ×9 (21:00)
[2023-11-09] MEDS ORDERED: TPN CENTRAL IV SCH ×9 (21:00)
[2023-11-09] MEDS ORDERED: [UNRECOGNIZED DRUG - OTHER] IV SCH ×9 (21:00)
[2023-11-09] MEDS: HYDROmorphone 1 MG/ML INJ. CARTRIDGE IVP PRN (21:16)
[2023-11-09] MEDS: FAT EMULSIONS 250 ML IV SCH (21:27)
[2023-11-10] MEDS: INSULIN REGULAR, HUMAN 100 UNITS/ML, 3 ML VIAL (humuLIN R) SUBCUT PRN (00:34)
[2023-11-10] MEDS: HYDROmorphone 1 MG/ML INJ. CARTRIDGE IVP PRN ×4 (01:54→14:34)
[2023-11-10] MEDS: ONDANSETRON HCL 4 MG/2 ML VIAL IVP PRN ×6 (01:55→23:20)
[2023-11-10] MEDS: ACETAMINOPHEN 325 MG TABLET PO PRN (04:09)
[2023-11-10 06:17] LABS: BASOPHILS % (AUTO) 0.1 % (0.0-2.0); EOSINOPHILS # (AUTO) 0.1 K/uL (0.0-0.4); EOSINOPHILS % (AUTO) 2.2 % (0.0-4.0); HEMATOCRIT 35.4 % (36-48); LYMPHOCYTES # (AUTO) 0.6 K/uL (1.0-5.5); LYMPHOCYTES % (AUTO) 12.9 % (20.5-51.5); MEAN CORPUSCULAR HEMOGLOBIN 30 pg (27-31); MEAN CORPUSCULAR HGB CONC 34 % (32-36); MEAN CORPUSCULAR VOLUME 89 fL (79.0-98.0); MONOCYTES # (AUTO) 0.7 K/uL (0.0-1.0); MONOCYTES % (AUTO) 15.2 % (1.7-9.3); NEUTROPHILS # (AUTO) 3.2 K/uL (1.8-7.7); NEUTROPHILS % (AUTO) 69.6 % (40.0-70.0); PLATELET COUNT (AUTO) 323 K/uL (130-430); RED BLOOD CELL COUNT(AUTO) 3.97 MIL/uL (4.2-6.2); RED CELL DISTRIBUTION WIDTH 14.1 % (9.0-15.0); WHITE BLOOD COUNT (AUTO) 4.6 K/uL (4.8-10.8)
[2023-11-10] MEDS: metroNIDAZOLE 500 mg/NS 100 ML IV SCH ×3 (06:18→22:15)
[2023-11-10] MEDS: KETOROLAC TROMETHAMINE 15 MG VIAL IVP SCH ×2 (06:19→15:24)
[2023-11-10 06:37] LABS: ALBUMIN 1.9 g/dL (3.4-4.8); CALCIUM 8.1 mg/dL (8.4-11.0); CREATININE 0.55 mg/dL (0.55-1.30); POTASSIUM 3.8 mmol/L (3.5-5.1); TOTAL BILIRUBIN 0.1 mg/dL (0.0-1.0); TOTAL PROTEIN, SERUM 5.2 g/dL (6.4-8.3)
[2023-11-10] MEDS: ACETAMINOPHEN 500 MG TABLET PO SCH ×4 (07:00→21:00)
[2023-11-10 08:52] VITALS: BP_SYST 132; PULSE 80; RESP 16; TEMP 98.1; O2SAT 99
[2023-11-10] MEDS: GABAPENTIN 300 MG CAPSULE PO SCH ×3 (10:13→21:23)
[2023-11-10] MEDS: KCL 20 mEq in D5/0.45NS 1000mL 1,000 ML IV SCH ×2 (10:13→21:40)
[2023-11-10] MEDS: SIMETHICONE 80 MG TAB.CHEW PO SCH ×4 (10:14→21:22)
[2023-11-10] MEDS: PANTOPRAZOLE SODIUM 40 MG/VIAL (PROTONIX) IVP SCH (10:24)
[2023-11-10 10:57] VITALS: BP_SYST 124; PULSE 72; RESP 16; TEMP 98; O2SAT 97
[2023-11-10 15:37] VITALS: BP_SYST 135; PULSE 73; RESP 16; TEMP 97.2; O2SAT 98
[2023-11-10] MEDS: HYDROmorphone 2 MG/ML VIAL IVP PRN ×2 (18:44→23:19)
[2023-11-10] MEDS ORDERED: [UNRECOGNIZED DRUG - OTHER] IV SCH ×9 (21:00)
[2023-11-10] MEDS ORDERED: TPN CENTRAL IV SCH ×9 (21:00)
[2023-11-10] MEDS ORDERED: POTASSIUM CHLORIDE IV SCH ×9 (21:00)
[2023-11-10] MEDS ORDERED: SODIUM CHLORIDE IV SCH ×9 (21:00)
[2023-11-11] MEDS: HYDROmorphone 2 MG/ML VIAL IVP PRN ×2 (03:34→07:58)
[2023-11-11] MEDS: ACETAMINOPHEN 500 MG TABLET PO SCH ×4 (06:30→21:35)
[2023-11-11 06:31] LABS: BASOPHILS % (AUTO) 0.3 % (0.0-2.0); EOSINOPHILS # (AUTO) 0.1 K/uL (0.0-0.4); EOSINOPHILS % (AUTO) 2.1 % (0.0-4.0); HEMOGLOBIN 11.9 g/dL (12.0-16.0); LYMPHOCYTES % (AUTO) 14.7 % (20.5-51.5); MEAN CORPUSCULAR HEMOGLOBIN 30 pg (27-31); MEAN CORPUSCULAR HGB CONC 34 % (32-36); MEAN CORPUSCULAR VOLUME 89 fL (79.0-98.0); MONOCYTES # (AUTO) 1.1 K/uL (0.0-1.0); MONOCYTES % (AUTO) 16.5 % (1.7-9.3); NEUTROPHILS # (AUTO) 4.5 K/uL (1.8-7.7); NEUTROPHILS % (AUTO) 66.4 % (40.0-70.0); PLATELET COUNT (AUTO) 333 K/uL (130-430); RED BLOOD CELL COUNT(AUTO) 3.93 MIL/uL (4.2-6.2); RED CELL DISTRIBUTION WIDTH 13.9 % (9.0-15.0); WHITE BLOOD COUNT (AUTO) 6.8 K/uL (4.8-10.8)
[2023-11-11] MEDS: metroNIDAZOLE 500 mg/NS 100 ML IV SCH ×3 (06:31→22:39)
[2023-11-11 06:46] LABS: CALCIUM 8.1 mg/dL (8.4-11.0); CREATININE 0.53 mg/dL (0.55-1.30); PHOSPHORUS 3.3 mg/dL (2.7-4.5); POTASSIUM 4.3 mmol/L (3.5-5.1); TOTAL BILIRUBIN 0.2 mg/dL (0.0-1.0); TOTAL PROTEIN, SERUM 5.1 g/dL (6.4-8.3)
[2023-11-11 08:05] VITALS: O2SAT 99
[2023-11-11] MEDS: GABAPENTIN 300 MG CAPSULE PO SCH ×4 (09:00→21:34)
[2023-11-11] MEDS: SIMETHICONE 80 MG TAB.CHEW PO SCH ×4 (10:13→21:34)
[2023-11-11] MEDS: PANTOPRAZOLE SODIUM 40 MG/VIAL (PROTONIX) IVP SCH (10:14)
[2023-11-11] MEDS: HYDROcodone/ACETAMIN 5-325 MG TAB (NORCO/ VICODIN) PO PRN ×2 (10:28→19:35)
[2023-11-11] MEDS: KCL 20 mEq in D5/0.45NS 1000mL 1,000 ML IV SCH (10:29)
[2023-11-11 12:00] VITALS: BP_SYST 128; PULSE 75; RESP 17; TEMP 97.8; O2SAT 97
[2023-11-11] MEDS: HYDROmorphone 1 MG/ML INJ. CARTRIDGE IVP PRN (15:21)
[2023-11-11 16:11] VITALS: BP_SYST 132; PULSE 74; RESP 16; TEMP 97.4; O2SAT 98
[2023-11-11 20:00] VITALS: BP_SYST 143; PULSE 72; RESP 16; TEMP 98.9; O2SAT 100
[2023-11-11 20:50] VITALS: O2SAT 100
[2023-11-12] VITALS (8 sets, daily range): BP systolic 131–147; PULSE 72–80; RESP 16–18; TEMP 97.9–99.2; O2SAT 95–100
[2023-11-12] MEDS: ONDANSETRON HCL 4 MG/2 ML VIAL IVP PRN ×2 (00:10→14:14)
[2023-11-12] MEDS: HYDROcodone/ACETAMIN 5-325 MG TAB (NORCO/ VICODIN) PO PRN ×3 (00:13→08:13)
[2023-11-12] MEDS: KCL 20 mEq in D5/0.45NS 1000mL 1,000 ML IV SCH ×3 (00:20→22:41)
[2023-11-12] MEDS: ACETAMINOPHEN 500 MG TABLET PO SCH ×2 (06:05→11:07)
[2023-11-12] MEDS: metroNIDAZOLE 500 mg/NS 100 ML IV SCH ×2 (06:34→14:05)
[2023-11-12 07:02] LABS: BASOPHILS % (AUTO) 0.5 % (0.0-2.0); EOSINOPHILS # (AUTO) 0.3 K/uL (0.0-0.4); EOSINOPHILS % (AUTO) 3.7 % (0.0-4.0); HEMATOCRIT 34.5 % (36-48); HEMOGLOBIN 11.9 g/dL (12.0-16.0); LYMPHOCYTES # (AUTO) 1.1 K/uL (1.0-5.5); LYMPHOCYTES % (AUTO) 15.9 % (20.5-51.5); MEAN CORPUSCULAR HEMOGLOBIN 31 pg (27-31); MEAN CORPUSCULAR HGB CONC 35 % (32-36); MEAN CORPUSCULAR VOLUME 88 fL (79.0-98.0); MONOCYTES % (AUTO) 15.1 % (1.7-9.3); NEUTROPHILS # (AUTO) 4.4 K/uL (1.8-7.7); NEUTROPHILS % (AUTO) 64.8 % (40.0-70.0); PLATELET COUNT (AUTO) 344 K/uL (130-430); RED BLOOD CELL COUNT(AUTO) 3.91 MIL/uL (4.2-6.2); RED CELL DISTRIBUTION WIDTH 14.3 % (9.0-15.0); WHITE BLOOD COUNT (AUTO) 6.8 K/uL (4.8-10.8)
[2023-11-12 07:18] LABS: CALCIUM 8.1 mg/dL (8.4-11.0); CREATININE 0.61 mg/dL (0.55-1.30); POTASSIUM 3.9 mmol/L (3.5-5.1)
[2023-11-12] MEDS: SIMETHICONE 80 MG TAB.CHEW PO SCH ×4 (08:12→20:56)
[2023-11-12] MEDS: GABAPENTIN 300 MG CAPSULE PO SCH ×3 (08:12→20:56)
[2023-11-12] MEDS: PANTOPRAZOLE SODIUM 40 MG/VIAL (PROTONIX) IVP SCH (09:20)
[2023-11-12] MEDS: HYDROmorphone 1 MG/ML INJ. CARTRIDGE IVP PRN (14:15)
[2023-11-12] MEDS ORDERED: OXYCODONE/ACETAMINOPHEN 5-325 TABLET PO PRN ×3 (14:45→15:30)
[2023-11-12] MEDS ORDERED: oxyCODONE HCL 5 MG TABLET PO PRN (16:30)
[2023-11-12] MEDS: oxyCODONE HCL 5 MG TABLET PO PRN (16:37)
[2023-11-12] MEDS: HYDROmorphone 2 MG/ML VIAL IVP PRN (22:34)
[2023-11-13] VITALS (7 sets, daily range): BP systolic 114–136; PULSE 70–78; RESP 16–20; TEMP 97.3–97.8; O2SAT 98–99
[2023-11-13] MEDS: oxyCODONE HCL 5 MG TABLET PO PRN ×3 (03:01→15:21)
[2023-11-13] MEDS: ACETAMINOPHEN 325 MG TABLET PO PRN ×4 (05:27→22:50)
[2023-11-13 07:21] LABS: BASOPHILS % (AUTO) 0.4 % (0.0-2.0); EOSINOPHILS # (AUTO) 0.2 K/uL (0.0-0.4); EOSINOPHILS % (AUTO) 2.3 % (0.0-4.0); HEMATOCRIT 35.2 % (36-48); LYMPHOCYTES # (AUTO) 0.9 K/uL (1.0-5.5); LYMPHOCYTES % (AUTO) 11.7 % (20.5-51.5); MEAN CORPUSCULAR HEMOGLOBIN 30 pg (27-31); MEAN CORPUSCULAR HGB CONC 34 % (32-36); MEAN CORPUSCULAR VOLUME 88 fL (79.0-98.0); MONOCYTES # (AUTO) 0.9 K/uL (0.0-1.0); MONOCYTES % (AUTO) 11.8 % (1.7-9.3); NEUTROPHILS # (AUTO) 5.6 K/uL (1.8-7.7); NEUTROPHILS % (AUTO) 73.8 % (40.0-70.0); PLATELET COUNT (AUTO) 333 K/uL (130-430); RED BLOOD CELL COUNT(AUTO) 3.99 MIL/uL (4.2-6.2); RED CELL DISTRIBUTION WIDTH 14.2 % (9.0-15.0); WHITE BLOOD COUNT (AUTO) 7.6 K/uL (4.8-10.8)
[2023-11-13 07:28] LABS: CALCIUM 8.1 mg/dL (8.4-11.0); CREATININE 0.62 mg/dL (0.55-1.30); POTASSIUM 3.6 mmol/L (3.5-5.1)
[2023-11-13] MEDS: GABAPENTIN 300 MG CAPSULE PO SCH ×3 (09:06→21:39)
[2023-11-13] MEDS: SIMETHICONE 80 MG TAB.CHEW PO SCH ×4 (09:06→21:39)
[2023-11-13] MEDS: PANTOPRAZOLE SODIUM 40 MG/VIAL (PROTONIX) IVP SCH (09:06)
[2023-11-13] MEDS: KCL 20 mEq in D5/0.45NS 1000mL 1,000 ML IV SCH (15:21)
[2023-11-14] MEDS: KCL 20 mEq in D5/0.45NS 1000mL 1,000 ML IV SCH ×2 (03:53→21:51)
[2023-11-14] MEDS: oxyCODONE HCL 5 MG TABLET PO PRN ×4 (03:57→21:41)
[2023-11-14] MEDS: ACETAMINOPHEN 325 MG TABLET PO PRN ×4 (06:03→21:36)
[2023-11-14] MEDS: PANTOPRAZOLE SODIUM 40 MG/VIAL (PROTONIX) IVP SCH (08:45)
[2023-11-14] MEDS: GABAPENTIN 300 MG CAPSULE PO SCH ×3 (08:45→21:41)
[2023-11-14] MEDS: SIMETHICONE 80 MG TAB.CHEW PO SCH ×4 (08:45→21:41)
[2023-11-14] MEDS: HYDROmorphone 1 MG/ML INJ. CARTRIDGE IVP PRN (08:50)
[2023-11-14 08:51] VITALS: BP_SYST 138; PULSE 74; RESP 20; TEMP 98.7; O2SAT 98
[2023-11-14 11:44] VITALS: BP_SYST 140; PULSE 85; RESP 16; TEMP 98; O2SAT 99
[2023-11-14 16:20] VITALS: BP_SYST 132; PULSE 80; RESP 17; TEMP 97.4; O2SAT 99
[2023-11-14 19:55] VITALS: O2SAT 95
[2023-11-14 20:33] VITALS: RESP 20
[2023-11-14 20:46] VITALS: BP_SYST 136; PULSE 81; RESP 20; TEMP 98; O2SAT 98
[2023-11-15] VITALS (7 sets, daily range): BP systolic 118–131; PULSE 56–83; RESP 16–18; TEMP 97–98; O2SAT 79–100
[2023-11-15] MEDS: ACETAMINOPHEN 325 MG TABLET PO PRN ×5 (03:28→20:33)
[2023-11-15] MEDS: oxyCODONE HCL 5 MG TABLET PO PRN ×4 (04:06→23:08)
[2023-11-15 06:10] LABS: BASOPHILS % (AUTO) 0.4 % (0.0-2.0); EOSINOPHILS # (AUTO) 0.2 K/uL (0.0-0.4); EOSINOPHILS % (AUTO) 3.6 % (0.0-4.0); HEMATOCRIT 34.3 % (36-48); HEMOGLOBIN 11.6 g/dL (12.0-16.0); LYMPHOCYTES % (AUTO) 14.7 % (20.5-51.5); MEAN CORPUSCULAR HEMOGLOBIN 30 pg (27-31); MEAN CORPUSCULAR HGB CONC 34 % (32-36); MEAN CORPUSCULAR VOLUME 88 fL (79.0-98.0); MONOCYTES # (AUTO) 0.6 K/uL (0.0-1.0); MONOCYTES % (AUTO) 8.4 % (1.7-9.3); NEUTROPHILS # (AUTO) 4.9 K/uL (1.8-7.7); NEUTROPHILS % (AUTO) 72.9 % (40.0-70.0); PLATELET COUNT (AUTO) 398 K/uL (130-430); RED BLOOD CELL COUNT(AUTO) 3.88 MIL/uL (4.2-6.2); RED CELL DISTRIBUTION WIDTH 14.5 % (9.0-15.0); WHITE BLOOD COUNT (AUTO) 6.7 K/uL (4.8-10.8)
[2023-11-15 06:41] LABS: CALCIUM 7.8 mg/dL (8.4-11.0); CREATININE 0.62 mg/dL (0.55-1.30); POTASSIUM 3.4 mmol/L (3.5-5.1)
[2023-11-15] MEDS: KCL 20 mEq in D5/0.45NS 1000mL 1,000 ML IV SCH ×2 (07:08→20:34)
[2023-11-15] MEDS: GABAPENTIN 300 MG CAPSULE PO SCH ×3 (09:22→20:22)
[2023-11-15] MEDS: SIMETHICONE 80 MG TAB.CHEW PO SCH ×4 (09:22→20:22)
[2023-11-15] MEDS: PANTOPRAZOLE SODIUM 40 MG/VIAL (PROTONIX) IVP SCH (09:23)
[2023-11-15] MEDS ORDERED: DOCUSATE SODIUM 100 MG CAPSULE PO PRN (15:00)
[2023-11-15] MEDS: HYDROmorphone 1 MG/ML INJ. CARTRIDGE IVP SCH (20:22)
[2023-11-16] VITALS (8 sets, daily range): BP systolic 123–143; PULSE 72–89; RESP 16–18; TEMP 96.7–98; O2SAT 93–100
[2023-11-16] MEDS: HYDROmorphone 1 MG/ML INJ. CARTRIDGE IVP SCH ×3 (00:39→08:00)
[2023-11-16] MEDS: ACETAMINOPHEN 325 MG TABLET PO PRN (02:45)
[2023-11-16 06:45] LABS: CREATININE 0.6 mg/dL (0.55-1.30); POTASSIUM 3.7 mmol/L (3.5-5.1)
[2023-11-16 07:17] LABS: BASOPHILS % (AUTO) 0.5 % (0.0-2.0); EOSINOPHILS # (AUTO) 0.2 K/uL (0.0-0.4); HEMATOCRIT 33.8 % (36-48); HEMOGLOBIN 11.6 g/dL (12.0-16.0); LYMPHOCYTES # (AUTO) 0.9 K/uL (1.0-5.5); LYMPHOCYTES % (AUTO) 12.1 % (20.5-51.5); MEAN CORPUSCULAR HEMOGLOBIN 30 pg (27-31); MEAN CORPUSCULAR HGB CONC 34 % (32-36); MEAN CORPUSCULAR VOLUME 88 fL (79.0-98.0); MONOCYTES # (AUTO) 0.4 K/uL (0.0-1.0); MONOCYTES % (AUTO) 6.2 % (1.7-9.3); NEUTROPHILS # (AUTO) 5.5 K/uL (1.8-7.7); NEUTROPHILS % (AUTO) 78.2 % (40.0-70.0); PLATELET COUNT (AUTO) 395 K/uL (130-430); RED BLOOD CELL COUNT(AUTO) 3.83 MIL/uL (4.2-6.2); RED CELL DISTRIBUTION WIDTH 14.1 % (9.0-15.0)
[2023-11-16] MEDS: HYDROmorphone 1 MG/ML INJ. CARTRIDGE IVP PRN (08:09)
[2023-11-16] MEDS: SIMETHICONE 80 MG TAB.CHEW PO SCH ×4 (09:00→21:14)
[2023-11-16] MEDS: PANTOPRAZOLE SODIUM 40 MG/VIAL (PROTONIX) IVP SCH (09:00)
[2023-11-16] MEDS: GABAPENTIN 300 MG CAPSULE PO SCH ×3 (09:00→21:14)
[2023-11-16] MEDS: HYDROmorphone 2 MG/ML VIAL IVP PRN ×2 (10:03→18:27)
[2023-11-16] MEDS: KCL 20 mEq in D5/0.45NS 1000mL 1,000 ML IV SCH (11:00)
[2023-11-16] MEDS ORDERED: ONDANSETRON HCL 4 MG/2 ML VIAL ONE (12:32)
[2023-11-16] MEDS ORDERED: NS 50 ML BAG IV ONE (12:32)
[2023-11-16] MEDS ORDERED: NS IRRIG SOLN 1000 ML IR ONE (12:32)
[2023-11-16] MEDS ORDERED: ceFAZolin SODIUM 2 GM VIAL ONE (12:32)
[2023-11-16] MEDS ORDERED: SEVOFLURANE 15 MIN GAS INH ONE (12:32)
[2023-11-16] MEDS ORDERED: D5/0.45 NS 1,000 ML IV.SOLN IV ONE (12:32)
[2023-11-16] MEDS ORDERED: KETOROLAC TROMETHAMINE 30 MG VIAL ONE (12:32)
[2023-11-16] MEDS ORDERED: HEPARIN SODIUM,PORCINE 10,000 UNIT/ML VIAL ONE (12:32)
[2023-11-16] MEDS ORDERED: LIDOCAINE/EPI 1% 1:100000 20 ML VIAL ONE (12:32)
[2023-11-16] MEDS ORDERED: PROPOFOL 200MG/ 20ML VIAL (DIPRIVAN) IV ONE (12:32)
[2023-11-16] MEDS ORDERED: NALOXONE HCL 0.4 MG/ML AMP (NARCAN) IVP PRN (13:15)
[2023-11-16] MEDS ORDERED: ONDANSETRON HCL 4 MG/2 ML VIAL IVP PRN (13:15)
[2023-11-16] MEDS ORDERED: HYDROmorphone 1 MG/ML INJ. CARTRIDGE IVP PRN (13:15)
[2023-11-16] MEDS ORDERED: HYDROmorphone 2 MG/ML VIAL IVP PRN (13:15)
[2023-11-16] MEDS: oxyCODONE HCL 5 MG TABLET PO PRN (21:32)
[2023-11-17 00:03] VITALS: BP_SYST 136; PULSE 91; RESP 18; TEMP 96.6; O2SAT 100
[2023-11-17] MEDS: HYDROmorphone 1 MG/ML INJ. CARTRIDGE IVP SCH ×5 (00:03→16:00)
[2023-11-17] MEDS: ACETAMINOPHEN 325 MG TABLET PO PRN ×4 (02:00→16:41)
[2023-11-17] MEDS: KCL 20 mEq in D5/0.45NS 1000mL 1,000 ML IV SCH ×2 (04:11→13:40)
[2023-11-17] MEDS: oxyCODONE HCL 5 MG TABLET PO PRN ×4 (04:19→14:50)
[2023-11-17 08:00] VITALS: O2SAT 99
[2023-11-17 08:05] VITALS: O2SAT 100
[2023-11-17] MEDS: GABAPENTIN 300 MG CAPSULE PO SCH ×2 (09:00→15:00)
[2023-11-17] MEDS: SIMETHICONE 80 MG TAB.CHEW PO SCH ×3 (09:04→17:00)
[2023-11-17] MEDS: PANTOPRAZOLE SODIUM 40 MG/VIAL (PROTONIX) IVP SCH (09:05)
[2023-11-17 12:00] VITALS: BP_SYST 130; PULSE 97; RESP 18; TEMP 98.9; O2SAT 98
[2023-11-17 13:49] VITALS: BP_SYST 130; PULSE 97; RESP 18; TEMP 97; O2SAT 84
[2023-11-17] MEDS ORDERED: PRO40 PO (13:59)
[2023-11-17] MEDS ORDERED: OXYIR5 PO ×2 (14:09→14:10)
[2023-11-17 16:00] VITALS: BP_SYST 128; PULSE 94; RESP 16; TEMP 98.8; O2SAT 98
[2023-11-18] MEDS ORDERED: CLON0.2T PO (19:51)
== END 2023-11-17 19:20 | disposition home health service (06) | DRG 389 ==
LOC: SED 11:26 → SMU 14:08 → INTOOBSV 14:08 → SMU 17:05 → STU 11-05 19:46 → OBSVTOIN 11-05 22:30 → STU 11-08 12:30 → SMU 11-09 13:05
PROVIDERS: ADMIT Preventive Medicine Preventive Medicine/Occupational Environmental Medicine; ATTEND Preventive Medicine Preventive Medicine/Occupational Environmental Medicine
PROC: 0W9G3ZZ Drainage of Peritoneal Cavity, Percutaneous Approach (ICD-10-PCS; 2023-11-05)
PROC: 0DBP8ZX Excision of Rectum, Via Natural or Artificial Opening Endoscopic, Diagnostic (ICD-10-PCS; 2023-11-05)
PROC: 0D9670Z Drainage of Stomach with Drainage Device, Via Natural or Artificial Opening (ICD-10-PCS; principal; 2023-11-05 17:37)
PROC: 02HV33Z Insertion of Infusion Device into Superior Vena Cava, Percutaneous Approach (ICD-10-PCS; 2023-11-16)
PROC: B548ZZA Ultrasonography of Superior Vena Cava, Guidance (ICD-10-PCS; 2023-11-16)
DX: K56.609 Unspecified intestinal obstruction, unspecified as to partial versus complete obstruction (principal); R18.0 Malignant ascites; E78.5 Hyperlipidemia, unspecified; E87.6 Hypokalemia; K62.89 Other specified diseases of anus and rectum; R74.01 Elevation of levels of liver transaminase levels; R73.9 Hyperglycemia, unspecified; D72.819 Decreased white blood cell count, unspecified
CPT/HCPCS: 36415; 71045; 74018; 76000; 76376; 80048; 80053; 80076; 81001; 81003; 82378; 82962; 83690; 83735; 84100; 84478; 84703; 85025; 85610-TC; 85730-TC; 86304; 87081; 88108; 88305; 88341; 88342; 94010; 94760; 96365; 96375; 97110-GP; 97116-GP; 97163-GP; 97530-GP; 99285; C1751; C1788; C9113; C9290; G0378; J0330; J1170; J1644; J1815; J1885; J2270; J2405; J2704; J2710; J2765; J3010; J3465; J3475; J3480; J3490; J7030; J7050; J7120; J7131; Q9964; Q9967

== ENCOUNTER 2023-11-18 18:08 | Emergency (ER) | payer BC ==
[~2023-11-18] VITALS: Ht 172.7 cm; Wt 70.3 kg
[~2023-11-18 18:08] MED LIST changes: -HYDR-3917 PO; -METR-154 PO; +OXYIR5 PO; +PRO40 PO
[2023-11-18 18:10] VITALS: BP_SYST 152; PULSE 88; RESP 17; TEMP 98.1; O2SAT 98
[2023-11-18] MEDS ORDERED: HYDROcodone/ACETAMIN 10-325 MG TAB PO ONE (18:45)
[2023-11-18 19:21] LABS: BASOPHILS % (AUTO) 0.7 % (0.0-2.0); EOSINOPHILS # (AUTO) 0.2 K/uL (0.0-0.4); EOSINOPHILS % (AUTO) 2.9 % (0.0-4.0); HEMOGLOBIN 12.5 g/dL (12.0-16.0); LYMPHOCYTES # (AUTO) 1.1 K/uL (1.0-5.5); LYMPHOCYTES % (AUTO) 17.1 % (20.5-51.5); MEAN CORPUSCULAR HEMOGLOBIN 30 pg (27-31); MEAN CORPUSCULAR HGB CONC 34 % (32-36); MEAN CORPUSCULAR VOLUME 88 fL (79.0-98.0); MONOCYTES # (AUTO) 0.4 K/uL (0.0-1.0); MONOCYTES % (AUTO) 6.6 % (1.7-9.3); NEUTROPHILS # (AUTO) 4.6 K/uL (1.8-7.7); NEUTROPHILS % (AUTO) 72.7 % (40.0-70.0); PLATELET COUNT (AUTO) 512 K/uL (130-430); RED BLOOD CELL COUNT(AUTO) 4.19 MIL/uL (4.2-6.2); RED CELL DISTRIBUTION WIDTH 14.3 % (9.0-15.0); WHITE BLOOD COUNT (AUTO) 6.3 K/uL (4.8-10.8)
[2023-11-18 19:29] LABS: ANION GAP 9 (5-15); CALCIUM 8.6 mg/dL (8.4-11.0); CARBON DIOXIDE 27 mmol/L (23-29); CHLORIDE 104 mmol/L (98-107); CREATININE 0.65 mg/dL (0.55-1.30); GFR AFRICAN AMERICAN 125 mL/min (>90); GLUCOSE 100 mg/dL (74-106); POTASSIUM 3.7 mmol/L (3.5-5.1); SODIUM SERUM 140 mmol/L (136-145); UREA NITROGEN, BLOOD 5 mg/dL (8-21)
[2023-11-18 19:30] LABS: GFR NON AFRICAN-AMERICAN 103 mL/min (>90)
[2023-11-18] MEDS ORDERED: CLON0.2T PO (19:51)
[2023-11-18] MEDS ORDERED: ALPRAZolam 0.25 MG TABLET PO ONE (20:00)
[2023-11-18 20:21] VITALS: BP_SYST 149; PULSE 89; RESP 18; TEMP 98.6; O2SAT 98
== END 2023-11-18 20:45 | disposition home or self-care (01) ==
LOC: SED 18:08
DX: I10 Essential (primary) hypertension (principal); E78.5 Hyperlipidemia, unspecified; Z85.038 Personal history of other malignant neoplasm of large intestine; Z91.048 Other nonmedicinal substance allergy status; Z79.899 Other long term (current) drug therapy
CPT/HCPCS: 36415; 71045; 80048; 83880; 84484; 85025; 93005; 99285